=== PATIENT | female | born 1980 | race Caucasian/White ===

== ENCOUNTER → 2017-06-25 | Outpatient (REF) | payer OTHER ==
[~2017-06-25] MED LIST: CYCL10TA PO; MOBI4TAB PO
[2017-06-25 13:04] LABS: BASO % 0.4 % (0.0-1.0); EOS # 0.1 K/mm3 (0.0-0.50); EOS % 1.4 % (0.0-3.0); LARGE UNSTAINED CELL # 0.1 K/mm3 (0.0-0.4); LARGE UNSTAINED CELL % 1.5 % (0.0-4.0); LYMPH # 1.6 K/mm3 (1.5-4.5); MEAN CORPUSCULAR HEMOGLOBIN 31.5 pg (27.0-33.0); MEAN CORPUSCULAR HGB CONC 34.2 g/dl (32.0-36.5); MEAN CORPUSCULAR VOLUME 92.1 fl (80.0-96.0); MONO # 0.2 K/mm3 (0.0-0.8); MONO % 4.8 % (0.0-5.0); NEUTROPHILS # 3.1 K/mm3 (1.8-7.7); NEUTROPHILS % 60.9 % (36.0-66.0); PLATELET COUNT, AUTOMATED 253 k/mm3 (150-450); RED CELL DISTRIBUTION WIDTH 12.3 % (11.5-14.5)
[2017-06-25 13:26] LABS: FOLATE > 24.0 NG/ML
[2017-06-25 13:29] LABS: VITAMIN B12 LEVEL 401 PG/ML
[2017-06-25 13:41] LABS: ALBUMIN/GLOBULIN RATIO 1.14 (1.00-1.93); ALKALINE PHOSPHATASE 68 U/L (45-117); ALT/SGPT 17 U/L (12-78); ANION GAP 8 MEQ/L (8-16); AST/SGOT 18 U/L (15-37); BLOOD UREA NITROGEN 11 MG/DL (7-18); CARBON DIOXIDE LEVEL 26 MEQ/L (21-32); CHLORIDE LEVEL 106 MEQ/L (98-107); CHOLESTEROL LEVEL 199 MG/DL (<200); CREATININE FOR GFR 0.72 MG/DL (0.55-1.02); FREE T4 0.99 NG/DL (0.76-1.46); GLOMERULAR FILTRATION RATE > 60.0 (>60); GLUCOSE, FASTING 80 MG/DL (70-105); POTASSIUM SERUM 3.8 MEQ/L (3.5-5.1); SODIUM LEVEL 140 MEQ/L (136-145); TOTAL PROTEIN 7.5 GM/DL (6.4-8.2); TRIGLYCERIDES LEVEL 50 MG/DL (<150)
== END ==
LOC: M LABDRAW1 08:21
PROVIDERS: ATTEND Emergency Medicine
DX: E66.3 Overweight (principal); R25.3 Fasciculation

== ENCOUNTER 2017-08-31 14:51 | Emergency (ER) | payer OTHER ==
[~2017-08-31] VITALS: Ht 175.3 cm; Wt 79.2 kg
[2017-08-31] MEDS ORDERED: MOBI4TAB PO (16:40)
[2017-08-31] MEDS ORDERED: CYCL10TA PO (16:40)
[2017-08-31 16:52] VITALS: BP 101/58
== END 2017-08-31 17:01 | disposition home or self-care (01) ==
LOC: M ED 14:51
DX: S39.012A Strain of muscle, fascia and tendon of lower back, initial encounter (principal); V49.40XA Driver injured in collision with unspecified motor vehicles in traffic accident, initial encounter; Y92.410 Unspecified street and highway as the place of occurrence of the external cause; Y93.89 Activity, other specified; Y99.9 Unspecified external cause status

== ENCOUNTER 2017-09-24 04:06 | Emergency (ER) | payer OTHER ==
[~2017-09-24] VITALS: Ht 175.3 cm; Wt 75.0 kg
[2017-09-24] MEDS ORDERED: VALT1TAB PO (04:15)
[2017-09-24] MEDS ORDERED: PHEN-239 PO (04:15)
[2017-09-24] MEDS ORDERED: CLINDAMYCIN 150 MG CAP PO ONE (04:45)
[2017-09-24] MEDS ORDERED: CLEO300C2 PO (04:45)
[2017-09-24 04:52] VITALS: BP 120/62
== END 2017-09-24 04:54 | disposition home or self-care (01) ==
LOC: M ED 04:06
DX: J02.9 Acute pharyngitis, unspecified (principal)

== ENCOUNTER → 2018-02-10 | Outpatient (REF) | payer OTHER ==
[2018-02-10 16:01] LABS: FREE T4 0.83 NG/DL (0.76-1.46); RHEUMATOID FACTOR QUANT < 10.0 IU/ML (<15.0)
[2018-02-12 14:11] LABS: ANTINUCLEAR ANTIBODIES DIRECT Negative (Negative)
== END ==
LOC: M LABDRAW1 14:15
DX: I73.00 Raynaud's syndrome without gangrene (principal)

== ENCOUNTER → 2018-03-16 | Outpatient (REF) | payer OTHER | LOC: M LAB REF 13:58 | DX: Z12.4 Encounter for screening for malignant neoplasm of cervix (principal) | CPT/HCPCS: G0123 ==

== ENCOUNTER → 2018-04-01 | Outpatient (REF) | payer OTHER ==
[2018-04-01 19:14] LABS: RHEUMATOID FACTOR QUANT < 10.0 IU/ML (<15.0); TOTAL PROTEIN 7.1 GM/DL (6.4-8.2)
[2018-04-01 20:07] LABS: ERYTHROCYTE SEDIMENTATION RATE 10 mm/hr (0-20)
[2018-04-04 14:13] LABS: ANTINUCLEAR ANTIBODIES DIRECT Negative (Negative)
[2018-04-05 14:39] LABS: ALBUMIN 4.42 GM/DL (3.29-5.55); ALBUMIN % 62.2 % (55.8-66.1); ALPHA-1-GLOBULIN % 4.2 % (2.9-4.9); ALPHA-2-GLOBULINS 0.64 GM/DL (0.42-0.99); BETA-1-GLOBULINS % 5.7 % (4.7-7.2); BETA-2-GLOBULINS 0.33 GM/DL (0.19-0.55); BETA-2-GLOBULINS % 4.6 % (3.2-6.5); GAMMA GLOBULIN % 14.3 % (11.1-18.8); GAMMA GLOBULINS 1.02 GM/DL (0.65-1.58)
== END ==
LOC: M LABDRAW1 17:39
DX: G43.909 Migraine, unspecified, not intractable, without status migrainosus (principal)
CPT/HCPCS: 84165

== ENCOUNTER → 2018-09-26 | Outpatient (CLI) | payer OTHER ==
[2018-10-03 08:42] LABS: SUMMARY SEE SEPARATE REPORT
== END ==
LOC: M SLEEP 19:40
DX: G47.14 Hypersomnia due to medical condition (principal); R06.89 Other abnormalities of breathing; R53.83 Other fatigue
CPT/HCPCS: 95810